=== PATIENT | female | born 1995 | race Caucasian/White ===

== ENCOUNTER 2020-02-02 20:39 | Emergency (ER) | payer BC ==
[~2020-02-02] VITALS: Ht 165.1 cm; Wt 61.4 kg
[2020-02-02 21:10] VITALS: Ht 165.1 cm; Wt 61.4 kg
[2020-02-02] MEDS ORDERED: BC (21:10)
[2020-02-02] MEDS ORDERED: CRANBERRY (21:11)
[2020-02-03 01:59] VITALS: BP 121/74
== END 2020-02-03 02:02 | disposition other institution (70) ==
LOC: D.ER 20:39
DX: S32.011A Stable burst fracture of first lumbar vertebra, initial encounter for closed fracture (principal); V86.99XA Unspecified occupant of other special all-terrain or other off-road motor vehicle injured in nontraffic accident, initial encounter; Y93.9 Activity, unspecified; Y92.9 Unspecified place or not applicable